=== PATIENT | male | born 1935 | race Caucasian/White ===

== ENCOUNTER → 2017-03-16 | Outpatient (CLI) | payer MEDICARE, BC ==
[2017-03-16 09:45] LABS: INR 2.2 (<1.2); Prothrombin Time 21.3 sec (9.0-12.0)
== END | disposition home or self-care (01) ==
LOC: LABWHC1 08:31
PROVIDERS: ATTEND Family Medicine
DX: Z51.81 Encounter for therapeutic drug level monitoring (principal); Z95.2 Presence of prosthetic heart valve
CPT/HCPCS: 36415; 85610

== ENCOUNTER 2018-01-04 08:42 | Emergency (ER) | payer MEDICARE, BC ==
[2018-01-04 09:00] VITALS: RESP 16; TEMP 97.9
--- NOTE | 2018-01-04 09:13 | ED ---
Recheck HPI - General Chief Complaint: Recheck/Abnormal Lab/Rx Stated Complaint: Poss blood clot Time Seen by Provider: 01/04/18 09:00 Source: patient, RN notes reviewed Mode of arrival: ambulatory Limitations: no limitations - History of Present Illness Initial Comments: This 82-year-old male with a history of aortic valve repair who is on Coumadin for this who was sent in for evaluation of an elevated INR. A blood draw was done yesterday in the office apparently the results were obtained this morning he was instructed to come here. The patient denies any headaches any bleeding from his respiratory tract or GI tract. Also no bleeding no tract. He has no symptoms he surprise he had come in today he has no other complaints - Related Data Home Medications Medication Instructions Recorded Confirmed Lisinopril [Zestril] 10 mg PO DAILY 01/04/18 01/04/18 Warfarin Sodium 2.5 mg PO HS 01/04/18 01/04/18 Allergies Allergy/AdvReac Type Severity Reaction Status Date / Time No Known Allergies Allergy Verified 01/04/18 09:00 Review of Systems ROS Statement: Those systems with pertinent positive or pertinent negative responses have been documented in the HPI. ROS Other: All systems not noted in ROS Statement are negative. Past Medical History Past Medical History: Cancer, Hyperlipidemia, Hypertension Additional Past Medical History / Comment(s): hx prostate cancer 2010, hx colon polyps, hx trigeminal neuralgia History of Any Multi-Drug Resistant Organisms: None Reported Past Surgical History: Heart Catheterization Additional Past Surgical History / Comment(s): aortic valve replacement Past Anesthesia/Blood Transfusion Reactions: No Reported Reaction Smoking Status: Never smoker General Exam - General Exam Comments Initial Comments: This a well-developed well-nourished awake alert oriented times 3 male Limitations: no limitations General appearance: alert, in no apparent distress Head exam: Present: atraumatic, normocephalic, normal inspection Eye exam: Present: normal appearance, PERRL, EOMI. Absent: scleral icterus, conjunctival injection, periorbital swelling ENT exam: Present: normal exam, mucous membranes moist Neck exam: Present: normal inspection. Absent: tenderness, meningismus, lymphadenopathy Respiratory exam: Present: normal lung sounds bilaterally. Absent: respiratory distress, wheezes, rales, rhonchi, stridor Cardiovascular Exam: Present: regular rate, normal rhythm, other (Prominent aortic valve sound on auscultation.). Absent: systolic murmur, diastolic murmur , rubs, gallop, clicks GI/Abdominal exam: Present: soft, normal bowel sounds. Absent: distended, tenderness, guarding, rebound, rigid Extremities exam: Present: normal inspection, full ROM, normal capillary refill. Absent: tenderness, pedal edema, joint swelling, calf tenderness Back exam: Present: normal inspection Neurological exam: Present: alert, oriented X3, CN II-XII intact Psychiatric exam: Present: normal affect, normal mood Skin exam: Present: warm, dry, intact, normal color. Absent: rash Course Vital Signs 01/04/18 08:55 Temperature 97.9 F Pulse Rate 77 Respiratory 16 Rate Blood Pressure 170/86 O2 Sat by Pulse 98 Oximetry Medical Decision Making - Medical Decision Making I discussed the findings with the patient is INR today is 3.9 and was instructed to take only half his medication tonight he will get rechecked in several days. I did write a prescription for that. - Lab Data Lab Results 01/04/18 Range/Units 09:12 PT 34.8 H (9.0-12.0) sec INR 3.9 H (<1.2) APTT 36.7 H (22.0-30.0) sec Disposition Clinical Impression: Warfarin-induced coagulopathy Disposition: HOME SELF-CARE Condition: Good Instructions: Warfarin (By mouth) Additional Instructions: Take one half of her normal dose of Coumadin tonight have a recheck of your INR of the 16th. Is patient prescribed a controlled substance at d/c from ED?: No Referrals: Laurent Hannon MD [Primary Care Provider] - 1-2 days
[2018-01-04 09:35] LABS: INR 3.9 (<1.2); Partial Thromboplastin Time 36.7 sec (22.0-30.0); Prothrombin Time 34.8 sec (9.0-12.0)
[2018-01-04 10:13] VITALS: BP 160/82; PULSE 74
== END 2018-01-04 10:13 | disposition home or self-care (01) ==
LOC: EC 08:42
DX: D68.8 Other specified coagulation defects (principal); I10 Essential (primary) hypertension; Z85.46 Personal history of malignant neoplasm of prostate; Z95.818 Presence of other cardiac implants and grafts; Z95.2 Presence of prosthetic heart valve; Z79.01 Long term (current) use of anticoagulants; Z79.899 Other long term (current) drug therapy
CPT/HCPCS: 36415; 85610; 85730; 99283

== ENCOUNTER → 2023-07-18 | Outpatient (CLI) | payer MEDICARE, BC ==
[2023-07-18 10:42] LABS: INR 1.1 (<1.2); Prothrombin Time 11.9 sec (10.0-12.5)
== END | disposition home or self-care (01) ==
LOC: LABWHC1 09:37
PROVIDERS: ATTEND Dentist Oral and Maxillofacial Surgery
DX: D68.32 Hemorrhagic disorder due to extrinsic circulating anticoagulants (principal)
CPT/HCPCS: 36415; 85610